=== PATIENT | female | born 1945 | race Asian ===

== ENCOUNTER 2016-12-13 13:49 | Emergency (ER) | payer MEDICARE ==
[2016-12-13] MEDS ORDERED: Meclizine TAB* 12.5 MG PO ONE (15:34)
[2016-12-13 15:58] LABS: Hematocrit 44 % (35-47); Hemoglobin 14.2 g/dl (12.0-16.0); Mean Corpuscular HGB Conc 33 g/dl (31-36); Mean Corpuscular Hemoglobin 28 pg (27-31); Mean Corpuscular Volume 87 fL (80-97); Mean Platelet Volume 8 um3 (7.4-10.4); Red Blood Count 5.04 10^6/ul (4.0-5.4); Red Cell Distribution Width 15 % (10.5-15); White Blood Count 7.9 10^3/ul (3.5-10.8)
[2016-12-13 16:11] LABS: BUN/Creatinine Ratio 13.8 (8-20); C Reactive Protein 3.28 mg/L (< 5.00); Calcium 9.4 mg/dL (8.6-10.3); EGFR African American 114.9 (>60); EGFR Non-African American 89.3 (>60); Globulin 2.7 g/dL (2-4); Potassium 3.6 mmol/L (3.5-5.0); Total Bilirubin 0.4 mg/dL (0.2-1.0); Total Protein 6.7 g/dL (6.4-8.9)
--- NOTE | 2016-12-13 17:01 | RAD ---
INDICATION: LEFT lower extremity swelling and pain. COMPARISON: None. TECHNIQUE: Guerin scale, color Doppler, and spectral analysis of the deep veins of the LEFT lower extremity. Vessel compression, phasicity, and augmentation assessed. REPORT: The LEFT common femoral, great saphenous, profunda femoral, femoral, popliteal, peroneal, and posterior tibial veins are patent. Patency of the contralateral common femoral vein documented. IMPRESSION: No evidence for LEFT lower extremity deep venous thrombosis.
[2016-12-13 17:03] VITALS: BP 120/62
[2016-12-13] MEDS ORDERED: Acetaminophen TAB* 325 MG PO ONE (17:08)
--- NOTE | 2016-12-13 17:46 | ED ---
Eric Whalen Karl, scribed for Abraham Villanueva MD on 12/13/16 at 1548 . Lower Extremity - HPI Summary HPI Summary: 71 y/o F c/o 8/10 constant pain in her LLE for the past 3-4 days. Pt described the pain as a heavyness/soreness around her calf and behind her knee. Pt stated she was also dizzy yesterday and today. Pt also reported she was recently traveling long distances and was on a flight from [place]. Hx: thyroidectomy. - History of Current Complaint Chief Complaint: EDExtremityLower Stated Complaint: L KNEE PAIN COMMING FROM [facility] Time Seen by Provider: 12/13/16 15:23 Hx Obtained From: Patient Onset of Pain: Days Onset/Duration: Days Severity Initially: Moderate Severity Currently: Moderate Pain Intensity: 8 - LLE Pain Pain Scale Used: 0-10 Numeric Timing: Constant Location: Is Discrete @ - LLE Character Of Pain: Stiffness - soreness/heavyness Associated Signs And Symptoms: Positive: Dizziness, Knee Pain Aggravating Factor(s): Nothing Alleviating Factor(s): Nothing - Allergies/Home Medications Allergies/Adverse Reactions: Allergies Allergy/AdvReac Type Severity Reaction Status Date / Time Hydromorphone [From Dilaudid] Allergy Severe Shortness Verified 12/31/13 10:17 of Breath Codeine Allergy Shortness Verified 12/31/13 10:17 of Breath Morphine Allergy Shortness Verified 12/31/13 10:18 of Breath Antihistamines Allergy Shortness Uncoded 12/31/13 10:18 of Breath PMH/Surg Hx/FS Hx/Imm Hx Previously Healthy: No Endocrine/Hematology History: Reports: Hx Thyroid Disease Denies: Hx Diabetes Cardiovascular History: Denies: Hx Hypertension Respiratory History: Denies: Hx Asthma, Hx Chronic Obstructive Pulmonary Disease (COPD) GI History: Denies: Hx Ulcer - Cancer History Cancer Type, Location and Year: Thinks thyroid - Surgical History Surgery Procedure, Year, and Place: Thyroidectomy, Hysterectomy 19 years ago Infectious Disease History: No Infectious Disease History: Denies: Hx Hepatitis, Hx Human Immunodeficiency Virus (HIV), Traveled Outside the [place] in Last 30 Days - Family History Known Family History: Positive: Cardiac Disease - brother, Diabetes - father, Other - [place] - Social History Alcohol Use: None Substance Use Type: Reports: None Review of Systems Constitutional: Negative Eyes: Negative ENT: Negative Cardiovascular: Negative Respiratory: Negative Gastrointestinal: Negative Genitourinary: Negative Positive: Myalgia - LLE Skin: Negative Neurological: Other - dizziness Psychological: Normal All Other Systems Reviewed And Are Negative: Yes Physical Exam - Summary Physical Exam Summary: VITAL SIGNS: Reviewed. GENERAL: Patient is a well developed and nourished female who is lying comfortable in the stretcher. Patient is not in any acute respiratory distress. HEAD AND FACE: No signs of trauma. No ecchymosis, hematomas or skull depressions. No sinus tenderness. EYES: PERRLA, EOMI x 2, No injected conjunctiva, no nystagmus. EARS: Hearing grossly intact. Ear canals and tympanic membranes are within normal limits. MOUTH: Oropharynx within normal limits. NECK: Supple, trachea is midline, no adenopathy, no JVD, no carotid bruit, no c- spine tenderness, neck with full ROM. CHEST: Symmetric, no tenderness at palpation LUNGS: Clear to auscultation bilaterally. No wheezing or crackles. CVS: Regular rate and rhythm, S1 and S2 present, no murmurs or gallops appreciated. ABDOMEN: Soft, non-tender. No signs of distention. No rebound no guarding, and no masses palpated. Bowel sounds are normal. EXTREMITIES: FROM in all major joints, no edema, no cyanosis or clubbing. NEURO: Alert and oriented x 3. No acute neurological deficits. Speech is normal and follows commands. Triage Information Reviewed: Yes Vital Signs On Initial Exam: Initial Vitals Temp Pulse Resp BP Pulse Ox 97.6 F 70 16 140/64 99 12/13/16 13:52 12/13/16 13:52 12/13/16 13:52 12/13/16 13:52 12/13/16 13:52 Vital Signs Reviewed: Yes Diagnostics - Vital Signs Vital Signs Temp Pulse Resp BP Pulse Ox 12/13/16 13:52 97.6 F 70 16 140/64 99 - Laboratory Lab Results: Lab Results 12/13/16 12/13/16 Range/Units 15:51 15:51 WBC 7.9 (3.5-10.8) 10^3/ul RBC 5.04 (4.0-5.4) 10^6/ul Hgb 14.2 (12.0-16.0) g/dl Hct 44 (35-47) % MCV 87 (80-97) fL MCH 28 (27-31) pg MCHC 33 (31-36) g/dl RDW 15 (10.5-15) % Plt Count 242 (150-450) 10^3/ul MPV 8 (7.4-10.4) um3 Neut % (Auto) 68.2 (38-83) % Lymph % (Auto) 21.1 L (25-47) % [place] % (Auto) 7.0 (1-9) % Eos % (Auto) 3.2 (0-6) % Baso % (Auto) 0.5 (0-2) % Absolute Neuts (auto) 5.4 (1.5-7.7) 10^3/ul Absolute Lymphs (auto) 1.7 (1.0-4.8) 10^3/ul Absolute Monos (auto) 0.6 (0-0.8) 10^3/ul Absolute Eos (auto) 0.3 (0-0.6) 10^3/ul Absolute Basos (auto) 0 (0-0.2) 10^3/ul Absolute Nucleated RBC 0 10^3/ul Nucleated RBC % 0.1 Sodium 140 (133-145) mmol/L Potassium 3.6 (3.5-5.0) mmol/L Chloride 107 (101-111) mmol/L Carbon Dioxide 31 (22-32) mmol/L Anion Gap 2 (2-11) mmol/L BUN 9 (6-24) mg/dL Creatinine 0.65 (0.51-0.95) mg/dL Est GFR ( Amer) 114.9 (>60) Est GFR (Non-Af Amer) 89.3 (>60) BUN/Creatinine Ratio 13.8 (8-20) Glucose 126 H (70-100) mg/dL Calcium 9.4 (8.6-10.3) mg/dL Total Bilirubin 0.40 (0.2-1.0) mg/dL AST 15 (13-39) U/L ALT 16 (7-52) U/L Alkaline Phosphatase 74 (34-104) U/L C-Reactive Protein 3.28 (< 5.00) mg/L Total Protein 6.7 (6.4-8.9) g/dL Albumin 4.0 (3.2-5.2) g/dL Globulin 2.7 (2-4) g/dL Albumin/Globulin Ratio 1.5 (1-3) Result Diagrams: 12/13/16 15:51 12/13/16 15:51 Lab Statement: Any lab studies that have been ordered have been reviewed, and results considered in the medical decision making process. - EKG 15:39 EKG Interpretation: NSR at 78 bpm, No ST elevations, flipped T-wave in lead 3 - Additional Comments Diagnostic Additional Comments: Venous Doppler Study (Radiologist)IMPRESSION: No evidence for LEFT lower extremity deep venous thrombosis. Lower Extremity Course/Dx - Course Assessment/Plan: 71 y/o F c/o 8/10 constant pain in her LLE for the past 3-4 days. Pt described the pain as a heavyness/soreness around her calf and behind her knee. Pt stated she was also dizzy yesterday and today. Pt also reported she was recently traveling long distances and was on a flight from [place]. Hx : thyroidectomy. SKIN: Dry and warm. EKG shows a NSR w/o ASTRID. Left LE U/S : no evidence of DVT. Blood work WNL. In the ED patient was given Meclizine and her dizziness improved. She was given Tylenol for her leg pain. I discussed all the findings and test results with the patient. Patient was instructed to return to the emergency room immediately if any of the symptoms return or worsens. Plan of care was discussed with the patient and understands and agrees. All questions were answered at patient satisfaction. There were no further complaints or concerns. P/E: Lungs: CTA B/L. Good air exchange. No wheezing or crackles heard. CVS: S1 and S2 present. No murmurs appreciated. Patient is alert and oriented x 3. Patient is hemodynamically stable. Patient will be discharged home with follow up PMD in the next 2-3 days - Diagnoses Differential Diagnosis/HQI/PQRI: Positive: Contusion, DVT, Phlebitis, Sprain, Strain Provider Diagnoses: Leg pain, Dizziness Discharge - Discharge Plan Condition: Stable Disposition: HOME Prescriptions: Meclizine TAB* [Antivert 12.5 TAB*] 25 mg PO TID PRN #15 tab PRN Reason: Dizziness Patient Education Materials: Leg Pain (ED) Referrals: Non Staff,Doctor [Primary Care Provider] - Additional Instructions: Please follow up with your primary care provider. Return to the emergency department for changing or worsening symptoms. The documentation as recorded by the Eric robison Karl accurately reflects the service I personally performed and the decisions made by me, Abraham Villanueva MD.
== END 2016-12-13 18:50 | disposition home or self-care (01) ==
LOC: ED 13:49
DX: M79.605 Pain in left leg (principal); R42 Dizziness and giddiness; M25.562 Pain in left knee; Z90.89 Acquired absence of other organs
CPT/HCPCS: 36415; 80053; 85025; 86140; 93005; 99283; A9270-GY